=== PATIENT | female | born 1950 | race Caucasian/White ===

== ENCOUNTER 2019-05-01 08:53 | Outpatient (CLI) | payer MEDICARE, SELFPAY ==
--- NOTE | 2019-05-02 07:41 | ONC FU_ITS ---
Dr. Ozuna Patient Follow-Up Note Patient: Cele Gonzalez Unit #: [id number]: 1950 Dicatated By: Ravin Ozuna M.D.Date of Visit:May 01, 2019 Onc Med Follow-up/Prog Note Chief Complaint: Breast cancer. 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 She had presented with a lump in the lateral aspect of her left breast. It came to her attention after she started having some pain in that area. She was seen by her PCP, Marycruz Adam, and her further evaluation with mammogram on 06/09/2018 showed a focal asymmetric nodular density in the lower outer quadrant the left breast at the 5:00 position. Ultrasound showed a hypoechoic solid lesion at the 4:00 position measuring 1.8 x 1.8 x 2.1 cm. It was felt to be indeterminate, but suspicious for malignancy (BI-RADS 4C). Biopsy was recommended. On 06/29/2018 she underwent ultrasound-guided biopsy of the 4:00 position mass. 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 I had seen her initially on 07/13/2018. Her further evaluation with PET/CT on 07/18/2018 showed increased metabolic activity in her known left breast mass consistent with neoplasia. There was no strong evidence for local or distant metastases. A right paratracheal lymph node measuring 1.0 cm showed a maximum SUV of 3.21, felt to likely represent a benign lymph node. A Cancer Type ID study showed 96% probability of squamous cell carcinoma, subtype head/neck or skin. On 07/28/2018 she underwent left breast lumpectomy and axillary sentinel lymph node biopsy. Pathology on the lumpectomy showed 2 adjacent neoplasms, one of which was a moderately differentiated, keratinizing squamous cell carcinoma measuring 2.3 x 1.1 cm. The other was a grade 2 infiltrating ductal carcinoma measuring 1.1 x 1.1 cm. the surgical margins were free. The tumor was ER/IL negative and HER-2/junior negative (0 by IHC). There was no involvement in 1 sentinel lymph node. Given those findings, there appear to be no strong indication for chemotherapy, and she was recommended to proceed with radiation to the left breast. She completed treatment on 10/18/2018 to a total dose of 6000 cGy. She experienced some skin reaction, as expected. She otherwise tolerated it well. She was then followed on observation/expectant management. Her other medical illnesses include asthma, degenerative arthritis/degenerative disease of the spine, and hypoglycemia. She is a nonsmoker. She is seen for a follow-up visit. She has been feeling pretty good generally, though she complains that she doesn't have much energy. Her appetite is good. She has gained weight. She does not have fever, night sweats, or hot flashes. She has a cataract in her left eye which apparently needs to be excised. She says her breathing has been okay. She has a little cough in the mornings. She does not complain of chest pain. She sometimes has nausea. Her acid reflux symptoms are adequately managed with Zantac. Bowel function has been okay. She has some mild stress incontinence. She has pain in her left knee and leg. She also complains that her left breast is sore at times. She recently had an episode of pretty severe dizziness, and she had bad headache with it. Her description is consistent with vertigo. She has no focal neurologic symptoms. Medications: Advil 2 Tablet (of 200 mg) Oral PRN, Silvadene 1 (1 %) Cream Topical PRN, Tylenol 2 Capsule (of 500 mg) Oral PRN Allergies: No Known Allergies. Review of Systems: Constitutional - She does not have good energy. She is working multimedia designer. Her appetite is good and her weight is up about 8 pounds since her last visit. No fever, chills, hot flashes, or night sweats. ECOG score is 1, ENMT - No sinus congestion/drainage. No mouth sores. No sore throat or difficulty swallowing, Hematologic/Lymphatic - She bruises easily, Respiratory - No shortness of breath. She has a cough in the mornings. No pleuritic pain or hemoptysis, Cardiovascular - No angina pain. No palpitations, Gastrointestinal - She has nausea or vomiting. She uses Zantac to manage her heartburn. No diarrhea or constipation. No blood in the stool or black stools, Genitourinary (F) - No dysuria or hematuria. No urinary frequency. She has occasional stress incontinence, Musculoskeletal - She has pain in her knee and leg. She occasionally has soreness in her left breast, Integumentary - No skin complications, Neurologic - She has occasional headaches. She has pretty severe dizziness at times. No numbness/paresthesias or other focal neurologic symptoms, Psychiatric - She gets aggravated at times. No anxiety or depression. No insomnia. Vital Signs: Performed on May 01, 2019 09:00 Height - 65.00 in Weight - 240.4 lbs (HIGH) BSA - 2.14 sq.m BMI - 40.00 (HIGH) Temperature - 98.5 F Pulse - 84 /min Respiration - 17 /min BP - 131/90 mm(hg) O2 Sat - 97 % Pain - 3 Physical Examination: Constitutional - She looks good generally, Eyes - Sclerae nonicteric. Conjunctivae clear, ENMT - No lesions noted in the oral cavity, Hematologic/Lymphatic - No cervical or clavicular adenopathy, Respiratory - Lungs are clear with good air movement bilaterally, Cardiovascular - Heart rhythm is regular. There is a I/ systolic murmur at the upper left sternal border. There is no gallop or rub noted, Breasts - The right breast shows no mass. There is mild induration thruout the left breast. There is no mass palpable. There is no axillary adenopathy, Abdomen - Soft. Liver and spleen are not enlarged. There is no abdominal mass or ascites noted and there is no inguinal adenopathy, Extremities - No edema. Dorsalis pedis pulses are palpable bilaterally, Neurologic - No focal neurologic deficits noted. Impression: 1. Patient with a composite left breast cancer comprising to adjacent tumors, including a moderately differentiated squamous cell carcinoma and a grade 2 infiltrating ductal carcinoma, stage IA (T1c, N0, M0), ER/IL negative and HER-2/junior negative. 2. She underwent left breast lumpectomy and axillary sentinel lymph node biopsy on 07/28/2018. Her other medical illnesses include: 3. She has allergic rhinitis and mild asthma. 4. She has had some degenerative arthritis and degenerative disease of the spine, currently not symptomatic. 5. She has a history of hypoglycemia. Given the pathologic findings, there did not appear to be a strong indication for adjuvant chemotherapy. As such, she was recommended to proceed with radiation to the left breast. She completed treatment on 10/18/2018 to a total dose of 6000 cGy. She tolerated it well. She has been followed on observation/expectant management. Her clinical status appears stable with no evidence of recurrence of the breast cancer. Plan: She remains on observation/expectant management. I will see her again in 6 months. Signed By: Ravin Ozuna M.D. <<Signature on File>>
== END 2019-05-01 08:54 | disposition home or self-care (01) ==
LOC: ONCMED 08:56
PROVIDERS: PCP Family Medicine; Visit Provider Internal Medicine Medical Oncology
DX: Z08 Encounter for follow-up examination after completed treatment for malignant neoplasm (principal); Z85.3 Personal history of malignant neoplasm of breast; J45.909 Unspecified asthma, uncomplicated; M19.90 Unspecified osteoarthritis, unspecified site; E16.2 Hypoglycemia, unspecified; Z92.3 Personal history of irradiation
CPT/HCPCS: G0463

== ENCOUNTER 2019-06-08 10:40 | Outpatient (CLI) | payer MEDICARE, SELFPAY ==
--- NOTE | 2019-06-08 10:46 | MM_ITS ---
WS: [id number] BILATERAL DIGITAL DIAGNOSTIC MAMMOGRAM MAMMOGRAPHY WITH CAD CLINICAL INFORMATION: HX OF LEFT BREAST CA COMPARISON: June 09, 2018 TECHNIQUE: Bilateral CC, MLO, and ML views. FINDINGS: Scattered fibroglandular densities bilaterally. Lucent centered calcifications. Postoperative changes left breast with lumpectomy. Skin thickening due to treatment-related changes. No suspicious focal mass, asymmetry, calcifications, or architectural distortion. No evidence of mal ignancy. MM/[id number] IMPRESSION: BI-RADS: 2-Benign FOLLOW UP: 1 Year Follow-up Recommend return to annual diagnostic mammography.
== END 2019-06-08 10:41 | disposition home or self-care (01) ==
LOC: ONCMED 10:42
PROVIDERS: PCP Family Medicine; Visit Provider Internal Medicine Medical Oncology
DX: Z85.3 Personal history of malignant neoplasm of breast (principal)
CPT/HCPCS: 77066

== ENCOUNTER 2019-11-13 08:39 | Outpatient (CLI) | payer MEDICARE, SELFPAY ==
--- NOTE | 2019-11-17 16:30 | ONC FU_ITS ---
Dr. Ozuna Patient Follow-Up Note Patient: Cele Gonzalez Unit #: [id number]: 1950 Dicatated By: Ravin Ozuna M.D.Date of Visit:Nov 13, 2019 Onc Med Follow-up/Prog Note Chief Complaint: Breast cancer. 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 She had presented with a lump in the lateral aspect of her left breast. It came to her attention after she started having some pain in that area. She was seen by her PCP, Marycruz Adam, and her further evaluation with mammogram on 06/09/2018 showed a focal asymmetric nodular density in the lower outer quadrant the left breast at the 5:00 position. Ultrasound showed a hypoechoic solid lesion at the 4:00 position measuring 1.8 x 1.8 x 2.1 cm. It was felt to be indeterminate, but suspicious for malignancy (BI-RADS 4C). Biopsy was recommended. On 06/29/2018 she underwent ultrasound-guided biopsy of the 4:00 position mass. 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 I had seen her initially on 07/13/2018. Her further evaluation with PET/CT on 07/18/2018 showed increased metabolic activity in her known left breast mass consistent with neoplasia. There was no strong evidence for local or distant metastases. A right paratracheal lymph node measuring 1.0 cm showed a maximum SUV of 3.21, felt to likely represent a benign lymph node. A Cancer Type ID study showed 96% probability of squamous cell carcinoma, subtype head/neck or skin. On 07/28/2018 she underwent left breast lumpectomy and axillary sentinel lymph node biopsy. Pathology on the lumpectomy showed 2 adjacent neoplasms, one of which was a moderately differentiated, keratinizing squamous cell carcinoma measuring 2.3 x 1.1 cm. The other was a grade 2 infiltrating ductal carcinoma measuring 1.1 x 1.1 cm. the surgical margins were free. The tumor was ER/NH negative and HER-2/junior negative (0 by IHC). There was no involvement in 1 sentinel lymph node. Given those findings, there appear to be no strong indication for chemotherapy, and she was recommended to proceed with radiation to the left breast. She completed treatment on 10/18/2018 to a total dose of 6000 cGy. She experienced some skin reaction, as expected. She otherwise tolerated it well. She was then followed on observation/expectant management. Her other medical illnesses include asthma, degenerative arthritis/degenerative disease of the spine, and hypoglycemia. She is a nonsmoker. She is seen for a follow-up visit. She has been feeling good generally. She does complain that her energy is not good. She still works, but at a sedentary job. Her ECOG score is 1. She has good appetite. She has not had fever. She has been having more hot flashes/sweating than normal. She has a morning cough. She does not complain of shortness of breath or chest pain. She has no GI/ complaints other than occasional heartburn. She has some joint pain, mainly in the knees. She sometimes has headache. She has no focal neurologic symptoms. Medications: Advil 2 Tablet (of 200 mg) Oral PRN, Atorvastatin Calcium 1 Tablet (of 40 mg) Oral at bedtime, CoQ-10 1 Capsule Oral daily, Silvadene 1 (1 %) Cream Topical PRN, Tylenol 2 Capsule (of 500 mg) Oral PRN Allergies: No Known Allergies. Review of Systems: Constitutional - She feels good, though her energy is not good. She works full-time, but had a sedentary job. Her appetite is good. She has not had fever. She has been having more than normal hot flashes/sweating. ECOG score is 1, ENMT - She sometimes has sinus drainage. No mouth sores. No sore throat or difficulty swallowing, Hematologic/Lymphatic - She bruises easily, Respiratory - No shortness of breath. She sometimes has cough in the mornings. No pleuritic pain or hemoptysis, Cardiovascular - No angina pain. No palpitations, Gastrointestinal - No nausea or vomiting. She has some heartburn. No diarrhea or constipation. No blood in the stool or black stools, Genitourinary (F) - No dysuria or hematuria. No urinary frequency. No urgency or incontinence, Musculoskeletal - She has some joint pain, mainly in the knees. No other bone pain, Integumentary - No skin rash, Neurologic - She sometimes has headache. No dizziness. No numbness or tingling. No other focal neurologic symptoms, Psychiatric - No anxiety or depression, but she says she is stressed a lot. No insomnia. Vital Signs: Performed on Nov 13, 2019 08:52 Height - 65.00 in Weight - 248.0 lbs (HIGH) BSA - 2.17 sq.m BMI - 41.27 (HIGH) Temperature - 98.9 F (HIGH) Pulse - 74 /min Respiration - 22 /min BP - 156/73 mm(hg) (HIGH) O2 Sat - 97 % Pain - 0 Physical Examination: Constitutional - She looks pretty good generally, Eyes - Sclerae nonicteric. Conjunctivae clear, ENMT - No lesions noted in the oral cavity, Neck - No mass or thyromegaly, Hematologic/Lymphatic - No cervical or clavicular adenopathy, Respiratory - Lungs are clear with good air movement bilaterally, Cardiovascular - Heart rhythm is regular. There is no murmur, gallop, or rub noted, Breasts - The right breast shows no mass. The left breast shows nodularity and induration, and there is residual discoloration. There is no discrete mass palpable. There is no axillary adenopathy, Abdomen - Soft. Liver and spleen are not enlarged. There is no abdominal mass or ascites noted and there is no inguinal adenopathy, Back/Spine - No spine or CVA tenderness noted, Extremities - No edema. Dorsalis pedis pulses are palpable bilaterally, Neurologic - No focal neurologic deficits noted. Lab/Imaging: Test performed on Jun 01, 2019 09:30 C Peptide 1.3 ng/mL T4, Free 0.92 ng/dL TSH 1.510 uU/mL Cholesterol, Total 230 mg/dL Glucose 96 mg/dL BUN 15 mg/dL HDL Cholesterol 63 mg/dL Creatinine 0.87 mg/dL LDL Cholesterol 145 mg/dL Cr Clearance (Est) 106.85 mL/min BUN/Creatinine Ratio 17.2 Absolute Value Triglycerides 108 mg/dL Sodium 141 mmol/L Potassium 4.2 mmol/L Chloride 108 mmol/L CO2 28.8 mmol/L Calcium 8.6 mg/dL Protein, Total 7.5 g/dL Albumin 4.2 g/dL Globulin 3.3 g/dL Bilirubin, Total 0.6 mg/dL Alkaline Phosphatase 109 IU/L AST (SGOT) 21 IU/L ALT (SGPT) 20 IU/L WBC 5.2 10^9/L RBC 4.43 10^12/L HGB 13.6 g/dL HCT 42.2 % MCV 95.3 fl MCH 30.7 pg MCHC 32.2 g/dL RDW 13.0 % Platelet Count 231 10^9/L MPV 10.4 fL Neutrophils (Gran) 3.32 10^9/L Lymphocytes 1.41 10^9/L Monocytes 0.36 10^9/L Eosinophils 0.7 10^9/L Basophils 0.06 10^9/L Manual Lymphocytes 26.9 % Manual Monocytes 6.9 % Manual Eosinophils 1.3 % Manual Basophils 1.1 % Hepatitis C Ab NR NA Impression: 1. Patient with a composite left breast cancer comprising to adjacent tumors, including a moderately differentiated squamous cell carcinoma and a grade 2 infiltrating ductal carcinoma, stage IA (T1c, N0, M0), ER/NH negative and HER-2/junior negative. 2. She underwent left breast lumpectomy and axillary sentinel lymph node biopsy on 07/28/2018. Her other medical illnesses include: 3. She has allergic rhinitis and mild asthma. 4. She has had some degenerative arthritis and degenerative disease of the spine, currently not symptomatic. 5. She has a history of hypoglycemia. Given the pathologic findings, there did not appear to be a strong indication for adjuvant chemotherapy. As such, she was recommended to proceed with radiation to the left breast. She completed treatment on 10/18/2018 to a total dose of 6000 cGy. She tolerated it well. She has continued on observation/expectant management following completion of radiation. Thus far her clinical status has remained stable with no evidence of recurrence of the breast cancer. Plan: She remains on observation/expectant management. I will see her again in one year. Signed By: Ravin Ozuna M.D. <<Signature on File>>
== END 2019-11-13 08:40 | disposition home or self-care (01) ==
LOC: ONCMED 08:43
PROVIDERS: PCP Family Medicine; Visit Provider Internal Medicine Medical Oncology
DX: Z08 Encounter for follow-up examination after completed treatment for malignant neoplasm (principal); Z85.3 Personal history of malignant neoplasm of breast; J45.909 Unspecified asthma, uncomplicated; M19.90 Unspecified osteoarthritis, unspecified site; E16.2 Hypoglycemia, unspecified; Z92.3 Personal history of irradiation
CPT/HCPCS: G0463

== ENCOUNTER 2020-06-10 09:07 | Outpatient (CLI) | payer MEDICARE, SELFPAY ==
--- NOTE | 2020-06-10 09:11 | MM_ITS ---
WS: [id number] BILATERAL DIGITAL DIAGNOSTIC MAMMOGRAM MAMMOGRAPHY WITH CAD CLINICAL INFORMATION: HX OF BREAST CA HISTORY: Prior postoperative left lumpectomy with radiation COMPARISON: June 08, 2019 TECHNIQUE: Bilateral CC, MLO, and ML views. FINDINGS: Scattered fibroglandular densities bilaterally. Prior postoperative changes left breast with lumpecto my. Skin thickening due to treatment-related changes. Lucent centered calcifications. Right breast is unchanged in appearance. No suspicious focal mass, asymmetry, calcifications, or architectural distortion. No evidence of iraj gnancy. MM/[id number] IMPRESSION: BI-RADS: 2-Benign FOLLOW UP: 1 Year Follow-up Recommend return to annual diagnostic mammography.
== END 2020-06-10 09:08 | disposition home or self-care (01) ==
LOC: RADSHAW 09:10
PROVIDERS: PCP Electrodiagnostic Medicine; Visit Provider Internal Medicine Medical Oncology
DX: Z85.3 Personal history of malignant neoplasm of breast (principal)
CPT/HCPCS: 77066

== ENCOUNTER 2020-06-26 13:49 | Outpatient (CLI) | payer MEDICARE, SELFPAY ==
--- NOTE | 2020-06-30 10:12 | ONC FU_ITS ---
Dr. Ozuna Patient Follow-Up Note Patient: Cele Gonzalez Unit #: [id number]: 1950 Dicatated By: Ravin Ozuna M.D.Date of Visit:Jun 26, 2020 Onc Med Follow-up/Prog Note Chief Complaint: Breast cancer. 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 She had presented with a lump in the lateral aspect of her left breast. It came to her attention after she started having some pain in that area. She was seen by her PCP, Marycruz Adam, and her further evaluation with mammogram on 06/09/2018 showed a focal asymmetric nodular density in the lower outer quadrant the left breast at the 5:00 position. Ultrasound showed a hypoechoic solid lesion at the 4:00 position measuring 1.8 x 1.8 x 2.1 cm. It was felt to be indeterminate, but suspicious for malignancy (BI-RADS 4C). Biopsy was recommended. On 06/29/2018 she underwent ultrasound-guided biopsy of the 4:00 position mass. 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 I had seen her initially on 07/13/2018. Her further evaluation with PET/CT on 07/18/2018 showed increased metabolic activity in her known left breast mass consistent with neoplasia. There was no strong evidence for local or distant metastases. A right paratracheal lymph node measuring 1.0 cm showed a maximum SUV of 3.21, felt to likely represent a benign lymph node. A Cancer Type ID study showed 96% probability of squamous cell carcinoma, subtype head/neck or skin. On 07/28/2018 she underwent left breast lumpectomy and axillary sentinel lymph node biopsy. Pathology on the lumpectomy showed 2 adjacent neoplasms, one of which was a moderately differentiated, keratinizing squamous cell carcinoma measuring 2.3 x 1.1 cm. The other was a grade 2 infiltrating ductal carcinoma measuring 1.1 x 1.1 cm. the surgical margins were free. The tumor was ER/CA negative and HER-2/junior negative (0 by IHC). There was no involvement in 1 sentinel lymph node. Given those findings, there appear to be no strong indication for chemotherapy, and she was recommended to proceed with radiation to the left breast. She completed treatment on 10/18/2018 to a total dose of 6000 cGy. She experienced some skin reaction, as expected. She otherwise tolerated it well. She was then followed on observation/expectant management. Her other medical illnesses include asthma, degenerative arthritis/degenerative disease of the spine, and hypoglycemia. She is a nonsmoker. She is seen for a follow-up visit. She says she feels okay, though she does complain that she has no energy and that she stays tired all the time. She says she could sleep all the time. She is still pretty active and she does light work. ECOG score is 1. Her appetite is good. She has not had fever. She occasionally has sweating at night. She does not complain of shortness of breath, cough, or chest pain. Her acid reflux is adequately managed with Prilosec. Bladder function remains adequate, though she does have some urgency with urination. She says she is sore most of the time, especially in her knees. She also has pain in her right shoulder. She occasionally has headache. She has no focal neurologic symptoms. Medications: Advil 2 Tablet (of 200 mg) Oral PRN, Atorvastatin Calcium 1 Tablet (of 40 mg) Oral at bedtime, CoQ-10 1 Capsule Oral daily, Tylenol 2 Capsule (of 500 mg) Oral PRN Allergies: No Known Allergies. Vital Signs: Performed on Jun 26, 2020 14:15 Height - 65.00 in Weight - 244.8 lbs (LOW) BSA - 2.16 sq.m BMI - 40.74 (HIGH) Temperature - 97.8 F (LOW) Pulse - 78 /min Respiration - 18 /min BP - 148/83 mm(hg) (HIGH) O2 Sat - 99 % Pain - 0 Physical Examination: Constitutional - She looks pretty good generally, Eyes - Sclerae nonicteric. Conjunctivae clear, ENMT - No lesions noted in the oral cavity, Hematologic/Lymphatic - No cervical or clavicular adenopathy, Respiratory - Lungs are clear with good air movement bilaterally, Cardiovascular - Heart rhythm is regular. There is no murmur, gallop, or rub noted, Breasts - The right breast shows no mass. There is mild discoloration and induration of the left breast. There is no mass palpable. There is no axillary adenopathy, Abdomen - Soft. Liver and spleen are not enlarged. There is no abdominal mass or ascites noted and there is no inguinal adenopathy, Extremities - No edema, Neurologic - No focal neurologic deficits noted. Problem List: 1. Patient with a composite left breast cancer comprising 2 adjacent tumors, including a moderately differentiated squamous cell carcinoma and a grade 2 infiltrating ductal carcinoma, stage IA (T1c, N0, M0), ER/CA negative and HER-2/junior negative. She underwent left breast lumpectomy and axillary sentinel lymph node biopsy on 07/28/2018. 2. She has allergic rhinitis and mild asthma. 3. She has had some degenerative arthritis and degenerative disease of the spine. 4. She has a history of hypoglycemia. Problems Addressed with this Encounter and Plan: 1. Patient with a composite left breast cancer comprising 2 adjacent tumors, including a moderately differentiated squamous cell carcinoma and a grade 2 infiltrating ductal carcinoma, stage IA (T1c, N0, M0), ER/CA negative and HER-2/junior negative. She underwent left breast lumpectomy and axillary sentinel lymph node biopsy on 07/28/2018. Given the pathologic findings, there did not appear to be a strong indication for adjuvant chemotherapy. As such, she was recommended to proceed with radiation to the left breast. She completed treatment on 10/18/2018 to a total dose of 6000 cGy. She tolerated it well. She began expectant management following completion of radiation. Thus far during followup her clinical status has remained stable with no evidence of recurrence of the breast cancer. She remains on observation/expectant management. I will see her again in 6 months. 2. She has symptoms which are strongly suggestive of obstructive sleep apnea. I discussed this with her, and she is not interested in getting a sleep study. Signed By: Ravin Ozuna M.D. <<Signature on File>>
== END 2020-06-26 13:50 | disposition home or self-care (01) ==
LOC: ONCMED 13:51
PROVIDERS: PCP Electrodiagnostic Medicine; Visit Provider Internal Medicine Medical Oncology
DX: Z08 Encounter for follow-up examination after completed treatment for malignant neoplasm (principal); Z85.3 Personal history of malignant neoplasm of breast; Z90.12 Acquired absence of left breast and nipple; Z92.21 Personal history of antineoplastic chemotherapy; Z92.3 Personal history of irradiation; J30.9 Allergic rhinitis, unspecified; J45.20 Mild intermittent asthma, uncomplicated; M47.9 Spondylosis, unspecified; E16.2 Hypoglycemia, unspecified; G47.33 Obstructive sleep apnea (adult) (pediatric); Z79.899 Other long term (current) drug therapy
CPT/HCPCS: 99214

== ENCOUNTER 2020-12-25 15:26 | Outpatient (CLI) | payer MEDICARE, SELFPAY ==
--- NOTE | 2020-12-29 11:07 | ONC FU_ITS ---
Dr. Ozuna Patient Follow-Up Note Patient: Cele Gonzalez Unit #: [id number]: 1950 Dicatated By: Ravin Ozuna M.D.Date of Visit:Dec 25, 2020 Onc Med Follow-up/Prog Note Chief Complaint: Breast cancer. 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 She had presented with a lump in the lateral aspect of her left breast. It came to her attention after she started having some pain in that area. She was seen by her PCP, Marycruz Adam, and her further evaluation with mammogram on 06/09/2018 showed a focal asymmetric nodular density in the lower outer quadrant the left breast at the 5:00 position. Ultrasound showed a hypoechoic solid lesion at the 4:00 position measuring 1.8 x 1.8 x 2.1 cm. It was felt to be indeterminate, but suspicious for malignancy (BI-RADS 4C). Biopsy was recommended. On 06/29/2018 she underwent ultrasound-guided biopsy of the 4:00 position mass. 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 I had seen her initially on 07/13/2018. Her further evaluation with PET/CT on 07/18/2018 showed increased metabolic activity in her known left breast mass consistent with neoplasia. There was no strong evidence for local or distant metastases. A right paratracheal lymph node measuring 1.0 cm showed a maximum SUV of 3.21, felt to likely represent a benign lymph node. A Cancer Type ID study showed 96% probability of squamous cell carcinoma, subtype head/neck or skin. On 07/28/2018 she underwent left breast lumpectomy and axillary sentinel lymph node biopsy. Pathology on the lumpectomy showed 2 adjacent neoplasms, one of which was a moderately differentiated, keratinizing squamous cell carcinoma measuring 2.3 x 1.1 cm. The other was a grade 2 infiltrating ductal carcinoma measuring 1.1 x 1.1 cm. the surgical margins were free. The tumor was ER/TX negative and HER-2/junior negative (0 by IHC). There was no involvement in 1 sentinel lymph node. Given those findings, there appeared to be no strong indication for chemotherapy, and she was recommended to proceed with radiation to the left breast. She completed treatment on 10/18/2018 to a total dose of 6000 cGy. She experienced some skin reaction, as expected. She otherwise tolerated it well. She was then followed on observation/expectant management. Her other medical illnesses include asthma, degenerative arthritis/degenerative disease of the spine, and hypoglycemia. She is a nonsmoker. She is seen for a follow-up visit. She has been feeling okay, though she says her energy is not good. However, she does all her normal activity. ECOG score is 0. Her appetite has been okay. She has no fever, night sweats, or hot flashes. She has not had sore mouth or throat. She has no shortness of breath, cough, or chest pain. She has some acid reflux, which is adequately managed with ranitidine. She has no other GI complaints. She does have some urgency with urination. She has joint pain, which comes and goes. She sometimes has headache. She does not complain of dizziness, and she has no focal neurologic symptoms. She is having some depression. Medications: Advil 2 Tablet (of 200 mg) Oral PRN, Atorvastatin Calcium 1 Tablet (of 40 mg) Oral at bedtime, Citalopram Hydrobromide 1 Tablet (of 10 mg) Oral daily, CoQ-10 1 Capsule Oral daily, Tylenol 2 Capsule (of 500 mg) Oral PRN Allergies: No Known Allergies. Vital Signs: Performed on Dec 25, 2020 15:43 Height - 65.00 in Weight - 248 lbs (HIGH) BSA - 2.17 sq.m BMI - 41.27 (HIGH) Temperature - 96.4 F (LOW) Pulse - 79 /min Respiration - 18 /min BP - 133/75 mm(hg) O2 Sat - 98 % Pain - 0 Fatigue - 7 Physical Examination: Constitutional - She looks pretty good generally, Eyes - Sclerae nonicteric. Conjunctivae clear, ENMT - No lesions noted in the oral cavity, Hematologic/Lymphatic - No cervical or clavicular adenopathy, Respiratory - Lungs are clear with good air movement bilaterally, Cardiovascular - Heart rhythm is regular. There is no murmur, gallop, or rub noted, Breasts - The right breast shows no mass. There is mild induration of the left breast. There is no mass palpable. There is no axillary adenopathy, Abdomen - Soft. Liver and spleen are not enlarged. There is no abdominal mass or ascites noted and there is no inguinal adenopathy, Extremities - Mild edema, Neurologic - No focal neurologic deficits noted. Problem List: 1. Patient with a composite left breast cancer comprising 2 adjacent tumors, including a moderately differentiated squamous cell carcinoma and a grade 2 infiltrating ductal carcinoma, stage IA (T1c, N0, M0), ER/TX negative and HER-2/junior negative. She underwent left breast lumpectomy and axillary sentinel lymph node biopsy on 07/28/2018. 2. She has allergic rhinitis and mild asthma. 3. She has had some degenerative arthritis and degenerative disease of the spine. 4. She has a history of hypoglycemia. Problems Addressed with this Encounter and Plan: 1. Patient with a composite left breast cancer comprising 2 adjacent tumors, including a moderately differentiated squamous cell carcinoma and a grade 2 infiltrating ductal carcinoma, stage IA (T1c, N0, M0), ER/TX negative and HER-2/junior negative. She underwent left breast lumpectomy and axillary sentinel lymph node biopsy on 07/28/2018. Given the pathologic findings, there did not appear to be a strong indication for adjuvant chemotherapy. As such, she was recommended to proceed with radiation to the left breast. She completed treatment on 10/18/2018 to a total dose of 6000 cGy. She tolerated it well. She began expectant management following completion of radiation. Thus far during followup her clinical status has remained stable with no evidence of recurrence of the breast cancer. She remains on observation/expectant management. I will see her again in 6 months. 2. She is having some depression. She is agreeable to starting medication, she will be given a prescription for citalopram 10 mg daily. Signed By: Ravin Ozuna M.D. <<Signature on File>>
== END 2020-12-25 15:27 | disposition home or self-care (01) ==
LOC: ONCMED 15:30
PROVIDERS: PCP Electrodiagnostic Medicine; Visit Provider Internal Medicine Medical Oncology
DX: Z08 Encounter for follow-up examination after completed treatment for malignant neoplasm (principal); F32.A Depression, unspecified; K21.9 Gastro-esophageal reflux disease without esophagitis; Z85.3 Personal history of malignant neoplasm of breast; Z92.21 Personal history of antineoplastic chemotherapy
CPT/HCPCS: 99214

== ENCOUNTER 2021-06-13 08:51 | Outpatient (CLI) | payer MEDICARE, SELFPAY ==
--- NOTE | 2021-06-13 09:06 | MM_ITS ---
WS: [id number] Bilateral diagnostic 3D tomosynthesis digital mammogram, 06/13/2021 Clinical Data: HX OF BREAST CA Comparison: 06/10/2020, 06/08/2019, 06/09/2018. Findings: The breast parenchymal pattern shows fibroglandular tissue. There is a mole marker on the right breas t. The left breast shows skin thickening and slight volume loss because of treatment for breast cance r. No spiculated masses or clustered calcifications are seen. MM/[place] [id number] Impression: 1. Negative bilateral mammograms unchanged. 2. Recommend annual mammograms. BIRADS: 2-Benign FOLLOW UP: 1 Year Follow-up The CAD film tests checker was used.
== END 2021-06-13 08:52 | disposition home or self-care (01) ==
LOC: RAD 08:55
PROVIDERS: PCP Electrodiagnostic Medicine; Visit Provider Internal Medicine Medical Oncology
DX: Z85.3 Personal history of malignant neoplasm of breast (principal)
CPT/HCPCS: 77062

== ENCOUNTER 2021-09-02 13:04 | Oncology outpatient (recurring) (ONCR) | payer MEDICARE, SELFPAY | END 2021-09-02 23:59 | disposition home or self-care (01) | PROVIDERS: PCP Electrodiagnostic Medicine; Visit Provider Internal Medicine Medical Oncology | DX: Z08 Encounter for follow-up examination after completed treatment for malignant neoplasm (principal); Z85.3 Personal history of malignant neoplasm of breast; Z92.3 Personal history of irradiation | CPT/HCPCS: G0463 ==

== ENCOUNTER 2022-03-09 13:25 | Oncology outpatient (recurring) (ONCR) | payer MEDICARE, SELFPAY | END 2022-03-31 23:59 | disposition home or self-care (01) | PROVIDERS: PCP Electrodiagnostic Medicine; Visit Provider Internal Medicine Medical Oncology | DX: K21.9 Gastro-esophageal reflux disease without esophagitis; Z92.3 Personal history of irradiation; R13.10 Dysphagia, unspecified; Z08 Encounter for follow-up examination after completed treatment for malignant neoplasm; Z85.3 Personal history of malignant neoplasm of breast | CPT/HCPCS: 99214 ==

== ENCOUNTER 2022-06-08 09:10 | Outpatient (CLI) | payer MEDICARE, SELFPAY ==
--- NOTE | 2022-06-08 09:30 | MM_ITS ---
WS: [id number] DIAGNOSTIC BILATERAL DIGITAL BREAST TOMOSYNTHESIS MAMMOGRAPHY WITH CAD HISTORY: Breast cancer surveillance, yearly COMPARISON: 06/13/2021, 06/10/2020 TECHNIQUE: Bilateral craniocaudad, mediolateral oblique, and mediolateral views are submitted with to mosynthrahul and SM. Computer aided detection utilized. Breast composition: There are scattered areas of fibroglandular density. Postoperative changes with m ild trabecular thickening in the LEFT breast. Asymmetry in the anterior RIGHT breast is stable over m ultiple prior years. Benign calcifications in each breast. MM/[place] [id number] IMPRESSION: BI-RADS: 2-Benign FOLLOW UP: 1 Year Follow-up
== END 2022-06-08 09:11 | disposition home or self-care (01) ==
PROVIDERS: PCP Electrodiagnostic Medicine; Visit Provider Internal Medicine Medical Oncology
DX: Z12.31 Encounter for screening mammogram for malignant neoplasm of breast (principal)
CPT/HCPCS: 77062; 99214; G0279

== ENCOUNTER 2022-06-08 09:28 | Oncology outpatient (recurring) (ONCR) | payer MEDICARE, SELFPAY | END 2022-06-28 23:59 | disposition home or self-care (01) | LOC: ONCMED 09:28 | PROVIDERS: PCP Electrodiagnostic Medicine; Visit Provider Internal Medicine Medical Oncology | DX: Z08 Encounter for follow-up examination after completed treatment for malignant neoplasm (principal); Z85.3 Personal history of malignant neoplasm of breast; K21.9 Gastro-esophageal reflux disease without esophagitis; F32.A Depression, unspecified; Z78.0 Asymptomatic menopausal state; Z92.21 Personal history of antineoplastic chemotherapy; Z92.3 Personal history of irradiation; Z79.899 Other long term (current) drug therapy | CPT/HCPCS: 99214 ==

== ENCOUNTER 2022-06-12 12:34 | Outpatient (CLI) | payer MEDICARE, SELFPAY ==
--- NOTE | 2022-06-12 13:00 | XR_ITS ---
WS: [email or web address] DEXA (DUAL ENERGY X-RAY ABSORPTIOMETRY) Bone mineral density was performed using a [employer] machine. HISTORY: screening for osteoporosis COMPARISON: None available. Lumbar spine BMD (L1-L4): 1.014 g/cm2 T score: -1.4 Z score: -0.8 Total hip BMD: Left: 0.930 g/cm2. T score: -0.6 Z score: 0.2 Right: 0.918 g/cm2. T score: -0.7 Z score: 0.1 10 year probability of a major osteoporotic fracture is 8.9%. XR/XR DEXA axial skeleton* [id number] IMPRESSION: OSTEOPENIA based upon the WHO classification for females.
== END 2022-06-12 12:35 | disposition home or self-care (01) ==
LOC: RAD 12:37
PROVIDERS: PCP Electrodiagnostic Medicine; Visit Provider Nurse Practitioner
DX: Z78.0 Asymptomatic menopausal state (principal)
CPT/HCPCS: 77080

== ENCOUNTER 2022-12-08 12:47 | Oncology outpatient (recurring) (ONCR) | payer MEDICARE, SELFPAY | END 2022-12-29 23:59 | disposition home or self-care (01) | PROVIDERS: Visit Provider Internal Medicine Medical Oncology | DX: Z08 Encounter for follow-up examination after completed treatment for malignant neoplasm (principal); Z85.3 Personal history of malignant neoplasm of breast; K21.9 Gastro-esophageal reflux disease without esophagitis; F32.A Depression, unspecified; Z78.0 Asymptomatic menopausal state; Z79.899 Other long term (current) drug therapy; Z92.21 Personal history of antineoplastic chemotherapy; Z92.3 Personal history of irradiation; R13.10 Dysphagia, unspecified; C50.512 Malignant neoplasm of lower-outer quadrant of left female breast; Z17.1 Estrogen receptor negative status [ER-] | CPT/HCPCS: 99213 ==

== ENCOUNTER 2023-06-28 13:46 | Oncology outpatient (recurring) (ONCR) | payer MEDICARE, SELFPAY ==
--- NOTE | 2023-06-16 08:00 | MM_ITS ---
WS: [email or web address] BILATERAL DIAGNOSTIC DIGITAL TOMOSYNTHESIS MAMMOGRAM WITH CAD HISTORY: breast cancer COMPARISON: 06/08/2022, 06/13/2021 and 06/09/2018 Bilateral CC, ML and MLO views with tomosynthesis and synthetic mammography submitted. Computer aided detection analyzed. Breast composition: There are scattered areas of fibroglandular density. No suspicious masses, microc alcifications or architectural distortion. Scattered asymmetries within each breast. Postoperative ch anges in the LEFT breast. There is mild prominence of the trabecular pattern in the LEFT breast which is probably treatment related. No change. No skin thickening. Benign calcifications in each breast. IMPRESSION: MM/[place] [id number] BI-RADS: 2-Benign FOLLOW UP: 1 Year Follow-up
== END 2023-06-29 23:59 | disposition home or self-care (01) ==
PROVIDERS: PCP Family Medicine; Visit Provider Internal Medicine Medical Oncology
DX: C50.512 Malignant neoplasm of lower-outer quadrant of left female breast (principal)
CPT/HCPCS: 77062; 99213; G0279

== ENCOUNTER 2024-06-02 10:36 | Emergency (ER) | payer MEDICARE, SELFPAY ==
[2024-06-02 10:41] VITALS: BP 184/78; PULSE 77; RESP 17; TEMP 36.4; O2SAT 96; BMI 40.9
--- NOTE | 2024-06-02 10:48 | XR_ITS ---
WS: [email or web address] XR shoulder RT min 2V* [id number] REASON FOR EXAM: injury/pain FINDINGS: Minimally comminuted minimally displaced fracture of the surgical neck of the humerus. The glenoid is intact. Significant osteoarthritis of the acromioclavicular joint without acute abnormality. XR/XR shoulder RT min 2V* [id number] IMPRESSION: Proximal humeral fracture as above.
--- NOTE | 2024-06-02 11:50 | ED_ITS ---
HPI - Extremity Injury (Upper) General: Chief Complaint: Extremity Injury, Upper Stated Complaint: rt shoulder inj Time Seen by Provider: 06/02/24 10:46 Source: patient and family Mode of arrival: ambulatory Limitations: no limitations History of Present Illness: Patient is a 73-year-old female presents to ED today with a complaint of right shoulder pain following a trip and fall. She denies striking her head or LOC. No neck or back pain. She has no physical complaints at this time apart from right shoulder pain. Range of motion is limited due to discomfort. She denies numbness, tingling, loss of sensation to her right upper extremity. MD complaint: injury to: right and shoulder Onset (ago): hour(s) Other Extremity Injury: Right: shoulder Other injuries: none Place: home Severity: moderate Relieving factors: immobilization Exacerbating factors: movement of extremity Context: fall and direct blow Associated symptoms: Reports no associated symptoms; Denies neck pain Related Data Previous Rx's ?Medication ?Instructions ?Recorded citalopram 10 mg tablet 10 mg PO DAILY #30 tabs 05/31 11/22 pantoprazole 40 mg tablet,delayed 40 mg PO DAILY #90 t abs 06/28/23 release (Protonix) hydrocodone 5 mg-acetaminophen 325 1 tab PO Q6H PRN pa in #14 tabs 06/02/24 mg tablet Allergies Allergy/AdvReac Type Severity Reaction Status Date / Time No Known Allergies Allergy Verified 06/28/23 13:48 Review of Systems Musc: Reports: joint pain (R shoulder) and limited range of motion (R shoulder due to pain); Denies: neck pain or back pain Neuro: Denies: headache(s) PFS ED PFSH: Medical History Depression History of hypoglycemia Degenerative arthritis Asthma Breast cancer Surgical History History of lumpectomy of left breast (07/28/18) Left breast lumpectomy with axillary sentinel lymph node biopsy History of cataract extraction Bilateral History of lumbar laminectomy for ruptured disc Family History Mother Cancer Bladder Sister Lung disease Father Lung disease Other CAD (coronary artery disease) Denies family history of Diabetes Clotting disorder Dementia Hyperlipidemia Psychiatric illness Chronic kidney disease (CKD) Suicide Anesthesia complication Bleeding disorder Hypertension Stroke Social History Smoking and tobacco/nicotine status: never used tobacco/nicotine Alcohol intake: never Physical Exam Const: COMMON NORMALS: no acute distress, patient oriented x3, no limitations, healthy appearing, alert and well nourished GENERAL APPEARANCE: cooperative HENMT: COMMON NORMALS: normocephalic and atraumatic HEAD & SCALP: normal to inspection, normocephalic and atraumatic Neck/C-Spine: GENERAL: Yes normal visual inspection CERVICAL SPINE: No pain with cervical ROM and No Cervical spine tenderness Back/Pelvis: COMMON NORMALS: thoracic and lumbar spine normal to inspection and no thoracic nor lumbar tenderness Extremity: COMMON NORMALS: capillary refill normal GENERAL: Yes normal exam except as noted RIGHT UPPER EXTREMITY: Yes shoulder joint (TTP proximal humerus) Right shoulder: Yes Right shoulder joint inspection exam (normal gross inspection), Yes Right shoulder joint ROM exam (limited due to pain) and Yes Right shoulder joint neurovascular exam (normal) Neuro: COMMON NORMALS: patient oriented x3 SENSORIUM/ORIENTATION: Yes alert Course Vital Signs: Vital signs: Vital Signs Temperature 97.6 F 06/02/24 10:41 Pulse Rate 72 06/02/24 12:00 Respiratory Rate 17 06/02/24 10:41 Blood Pressure 140/87 06/02/24 12:00 Pulse Oximetry 97 06/02/24 12:00 Oxygen Delivery Me thod Room Air 06/02/24 10:41 MDM - Extremity Injury (Upper) Medical Decision Making Personal interpretation of patient's right shoulder showing a fracture to her greater tuberosity. Official radiology read is calling this a surgical neck fracture. Either way patient will be placed in a sling and we will have her follow-up with orthopedics. Lab Data Radiology Impressions Shoulder X-Ray 06/02/24 10:48 IMPRESSION: Proximal humeral fracture as above. All radiology interpretation(s) finalized by discharge Discharge Plan Discharge Patient Disposition: Home Clinical Impression: Closed fracture of greater tuberosity of right humerus Condition: Stable Prescriptions: New hydrocodone-acetaminophen 5-325 mg tablet 1 tab PO Q6H PRN (Reason: pain) Qty: 14 0RF No Action pantoprazole [Protonix] 40 mg tablet,delayed release (DR/EC) 40 mg PO DAILY Qty: 90 0RF citalopram 10 mg tablet 10 mg PO DAILY Qty: 30 2RF Rx Instructions: 1 tablet daily Discharge Orders: Discharge ED (Routine); Ordered 06/02/24 Ordered By: Yulisa Crawford Referrals: Tasia Fonseca PA [Primary Care Provider] - Patient Instructions: Proximal Humerus Fracture (ED), Opioid Safety, Pain Management Activity Restrictions/Additional Instructions: As we discussed, case management should reach out to you shortly to help set you up with your follow-up orthopedic appointment. You need to stay in your sling at all times apart from showering or bathing. You may continue to use [id number] analgesics to help with your discomfort. You may use the hydrocodone if needed for significant pain. Print Language: Mauritanian Coding Level of Care Code ED Seed Specialist for Darryl Falcon
[2024-06-02 12:00] VITALS: BP 140/87; PULSE 72; O2SAT 97
--- NOTE | 2024-06-05 09:40 | DCPLANNER ---
Referral sent to ortho on 06/05/24: Patient is a 73-year-old female presents to ED today with a complaint of right shoulder pain following a trip and fall. She denies striking her head or LOC. set you up with your follow-up orthopedic appointment. You need to stay in your sling at all times apart from showering or bathing. You may continue to use [id number] analgesics to help with your discomfort. You may use the hydrocodone if needed for significant pain.
== END 2024-06-02 12:00 | disposition home or self-care (01) ==
PROVIDERS: Emergency Provider Physician Assistant; PCP Physician Assistant
DX: S42.251A Displaced fracture of greater tuberosity of right humerus, initial encounter for closed fracture (principal); Z85.3 Personal history of malignant neoplasm of breast; W01.0XXA Fall on same level from slipping, tripping and stumbling without subsequent striking against object, initial encounter
CPT/HCPCS: 73030; 99283

== ENCOUNTER → 2024-06-09 10:45 | Outpatient (BNVA) | payer MEDICARE, SELFPAY | PROVIDERS: PCP Physician Assistant; Visit Provider Orthopaedic Surgery | DX: S42.291A Other displaced fracture of upper end of right humerus, initial encounter for closed fracture (principal); X58.XXXA Exposure to other specified factors, initial encounter | CPT/HCPCS: 73030; 99204 ==

== ENCOUNTER → 2024-06-19 13:24 | Outpatient (BNVA) | payer MEDICARE, SELFPAY | PROVIDERS: PCP Physician Assistant; Visit Provider Orthopaedic Surgery | DX: M25.511 Pain in right shoulder (principal); S42.291A Other displaced fracture of upper end of right humerus, initial encounter for closed fracture; X58.XXXA Exposure to other specified factors, initial encounter | CPT/HCPCS: 73030; 99213 ==

== ENCOUNTER → 2024-07-03 09:44 | Outpatient (BNVA) | payer MEDICARE, SELFPAY | PROVIDERS: PCP Physician Assistant; Visit Provider Orthopaedic Surgery | DX: S42.291P Other displaced fracture of upper end of right humerus, subsequent encounter for fracture with malunion (principal); X58.XXXD Exposure to other specified factors, subsequent encounter | CPT/HCPCS: 73030; 99213 ==

== ENCOUNTER → 2024-07-28 09:27 | Outpatient (BNVA) | payer MEDICARE, SELFPAY | PROVIDERS: PCP Physician Assistant; Visit Provider Orthopaedic Surgery | DX: S42.291A Other displaced fracture of upper end of right humerus, initial encounter for closed fracture (principal); X58.XXXA Exposure to other specified factors, initial encounter | CPT/HCPCS: 73030; 99213 ==

== ENCOUNTER 2024-08-23 12:38 | Outpatient (RCR) | payer MEDICARE, SELFPAY | END 2024-08-28 23:55 | disposition home or self-care (01) | LOC: SPT 12:38 | PROVIDERS: PCP Physician Assistant; Visit Provider Orthopaedic Surgery | DX: S42.201D Unspecified fracture of upper end of right humerus, subsequent encounter for fracture with routine healing (principal); X58.XXXD Exposure to other specified factors, subsequent encounter | CPT/HCPCS: 97161 ==

== ENCOUNTER 2024-08-29 05:00 | Outpatient (RCR) | payer MEDICARE, SELFPAY | END 2024-09-28 23:59 | disposition home or self-care (01) | LOC: SPT 05:00 | PROVIDERS: PCP Physician Assistant; Visit Provider Orthopaedic Surgery | DX: S42.201D Unspecified fracture of upper end of right humerus, subsequent encounter for fracture with routine healing (principal); X58.XXXD Exposure to other specified factors, subsequent encounter | CPT/HCPCS: 97110 ==

== ENCOUNTER → 2024-09-07 13:11 | Outpatient (BNVA) | payer MEDICARE, SELFPAY | PROVIDERS: PCP Physician Assistant; Visit Provider Orthopaedic Surgery | DX: S42.291D Other displaced fracture of upper end of right humerus, subsequent encounter for fracture with routine healing (principal); X58.XXXD Exposure to other specified factors, subsequent encounter | CPT/HCPCS: 99213 ==

== ENCOUNTER 2024-09-29 05:00 | Outpatient (RCR) | payer MEDICARE, SELFPAY | END 2024-10-29 23:59 | disposition home or self-care (01) | LOC: SPT 05:00 | PROVIDERS: PCP Physician Assistant; Visit Provider Orthopaedic Surgery | DX: S42.201D Unspecified fracture of upper end of right humerus, subsequent encounter for fracture with routine healing (principal); X58.XXXD Exposure to other specified factors, subsequent encounter | CPT/HCPCS: 97110 ==

== ENCOUNTER 2024-10-10 12:56 | Outpatient (CLI) | payer MEDICARE, SELFPAY | END 2024-10-10 12:57 | disposition home or self-care (01) | LOC: SLEEP 12:57 | PROVIDERS: PCP Physician Assistant; Referring Provider Physician Assistant; Visit Provider Internal Medicine Pulmonary Disease | DX: G47.33 Obstructive sleep apnea (adult) (pediatric) (principal) | CPT/HCPCS: G0399 ==